=== PATIENT | female | born 1960 | race Caucasian/White ===

== ENCOUNTER → 2017-07-22 12:37 | Outpatient (CLI) | payer OTHER, SELFPAY ==
--- NOTE | 2017-07-22 12:43 | CT_ITS ---
STUDY: CT MAXILLOFACIAL SINUSES REASON FOR EXAM: Female, 56 years old. Chronic sinusitis. RADIATION DOSAGE (If Supplied By Facility): CTDIvol = ( 33.06 ) mGy, DLP = ( 813.19 ) mGycm TECHNIQUE: The patient was scanned in a multi detector CT scanner. High resolution axial imaging was performed without the administration of intravenous contrast material. Sagittal and coronal images were reconstructed. Individualized dose optimization techniques were used for this CT. COMPARISON: None. FINDINGS: FRONTAL SINUSES: Normal aeration, without mucosal inflammatory disease. ETHMOIDAL SINUSES: Minimal areas of mucosal thickening in the posterior ethmoid sinuses, left greater than right. MAXILLARY SINUSES: Moderate mucosal thickening of the left maxillary sinus occurring mostly at the base and in the medial superior sinus with occlusion of the maxillary ostium and infundibulum. Mild to moderate mucosal thickening in the inferior right maxillary sinus and also in the superior sinus with occlusion of the maxillary ostium and infundibulum. 7 mm retention cyst of the posterior medial right maxillary sinus. SPHENOIDAL SINUSES: Mild circumferential mucosal thickening of the bilateral sphenoid sinuses. Normal bilateral middle turbinates. Somewhat nodular mucosal changes on the posterior portions of the inferior turbinates. 3 mm left nasal septal deviation and a moderate size left-sided septal spur. There is patency of the bilateral nasal airways. The visualized osseous structures are normal. The visualized bilateral orbital contents are normal. CT/Sinus/Facial Bone IMPRESSION: Minimal/mild areas of mucosal thickening in posterior ethmoid sinuses, left greater than right. Mild to moderate areas of mucosal thickening in the bilateral maxillary sinuses. Mucosal thickening near the maxillary ostia with bilateral occlusion of the ostia and infundibula. 7 mm retention cyst of the right maxillary sinus. Mild circumferential mucosal thickening in the bilateral sphenoid sinuses. Somewhat nodular mucosa of the posterior inferior turbinates. 3 mm left nasal septal deviation and a moderate size left-sided septal spur. Electronically Signed: Liliane Noel MD at 22:45 EST , Service support ,
== END ==
PROVIDERS: Visit Provider Otolaryngology
DX: J32.0 Chronic maxillary sinusitis (principal)
CPT/HCPCS: 70486

== ENCOUNTER 2017-08-21 05:58 | Day surgery (SDC) | payer OTHER, SELFPAY ==
--- NOTE | 2017-08-20 | ETH_PTH ---
PATIENT: ELSA LOVETT LOC: [facility] – [place] U#:[id number] AGE/SX: 57/F ROOM: RE08/21/[address]: Dr. Gurmeet De La Rosa MD : 1960 BED: DIS: 08/21/2017 SPEC #: [id number] RECD: 08/21/17 13:40 STATUS: JONATHAN REChelita #: [id number] ASHLEY: 08/20/17 00:[address]: Gurmeet De La Rosa DEPT: SURGICAL PATHOLOGY RECD BY: Neil Osuna ENTERED: 08/21/17 13:41 SP TYPE: ETH TISS OTHR DR: Out of Town Doctor Tissues: A - Ethmoid sinus, NOS B - Ethmoid sinus, NOS Procedures: Decalcification bone/plaque Surgery Specimen Level IV HEADER OPERATION: Endoscopy nasal/sinus with total ethmoidectomy PRE-OP DIAGNOSIS: Chronic maxillary sinusitis; chronic ethmoidal sinusitis; hypertrophy of nasal turbinates TISSUE SUBMITTED: A ? Right sinus contents, B ? Left sinus contents MICROSCOPIC DIAGNOSIS A. Right sinus contents: Fragments of respiratory mucosa with chronic inflammation and bone. B. Left sinus contents: Fragments of respiratory mucosa with chronic inflammation and bone. DAMIEN:[place] 08/26/17 MICROSCOPIC DESCRIPTION Slides are reviewed. GROSS DESCRIPTION A - Received in fixative is one container labeled with the patient's name and designated right sinus contents. The specimen consists of multiple fragments of pink-red hemorrhagic soft tissue mixed with fragments of bone that in aggregate measure 7.5 x 3 x 0.3 cm. The entire specimen is submitted in three cassettes after decalcification. B - Received in fixative is one container labeled with the patient's name and designated left sinus contents. The specimen consists of multiple fragments of pink hemorrhagic soft tissue mixed with fragments of bone that in aggregate measure 5 x 3 x 0.3 cm. The entire specimen is submitted in two cassettes after decalcification. / DAMIEN:[place] 08/21/17 TC:3 CPT: 17796 x2, 79717 x2
--- NOTE | 2017-08-21 06:07 | EKG12_ITS ---
Test Reason : PRE OP Blood Pressure : / mmHG Vent. Rate : 081 BPM Atrial Rate : 081 BPM P-R Int : 150 ms QRS Dur : 088 ms QT Int : 388 ms P-R-T Axes : 059 011 051 degrees QTc Int : 450 ms Normal sinus rhythm Normal ECG No previous ECGs available Confirmed by AMANDA NIETO, SARA ([id number]), department editor CAYLA CALDWELL ([id number] on 08/25/2017 9:43:10 AM Referred By: Gurmeet De La Rosa Confirmed By:SARA PATEL MD
[2017-08-21 06:31] VITALS: BP 127/79; PULSE 85; RESP 16; TEMP 37; O2SAT 95; BMI 42.7
[2017-08-21 06:41] LABS: Anion Gap 10 (5-15); BUN 14 mg/dL (7-18); BUN/Creat Ratio 17.8 RATIO (10-20); Calcium,Total 8.7 mg/dL (8.5-10.1); Chloride 106 mmol/L (98-107); Creatinine, Serum 0.79 mg/dL (0.55-1.02); EST Glomerular Filtration Rate 80 mL/min (>60); Est Glom Filt Rate - Afr Amer 96 mL/min (>60); Estimated Creatinine Clearance 57.86 ml/min; Glucose 101 mg/dL (74-106); Potassium 3.8 mmol/L (3.5-5.1); Sodium Level 141 mmol/L (136-145)
[2017-08-21] MEDS: Oxymetazoline 0.05% 1 SPRAY SPRAY.BTL 15 SPRAY (07:46)
[2017-08-21] MEDS: Lidocaine 4% 50 ML Bottle (07:46)
[2017-08-21] MEDS: Bacitracin 500 UNITS/GM PACKET (09:05)
--- NOTE | 2017-08-21 09:20 | DCINST_ITS ---
You will use the following diet at home:: No restrictions Discharge Activity: Return to Normal Activity, May not drive while taking narcotic pain medications. Call your doctor if your incision/area has: Sudden Increased Bleeding, Foul Smelling Discharge Call your doctor if you observe: Fever of 101 or Higher, Uncontrolled pain Allergies/Adverse Reactions: Allergies No Known Allergies Allergy (Verified 08/14/17 09:05) Medications to take at Discharge Pramipexole Di-HCl [Mirapex] 1 mg PO DAILY 08/14/17 Primary Care Physician: [facility] ,Out of [Primary Care Provider] - Please Follow Up With: Gurmeet De La Rosa MD When: 5 days
--- NOTE | 2017-08-21 09:25 | PCM.OPRPT ---
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 She had failed appropriate courses of antibiotic and medical therapy and CT scan showed ongoing chronic changes of the maxillary and ethmoid sinuses consistent with chronic disease as well as clinical presentation is significant hypertrophy of the inferior turbinates which are felt to be contributing to these complaints. The above procedure was offered and the patient was eager to proceed. The risks, alternatives, potential benefits, and complications were discussed at length and any questions answered to the patient and/or caregiver's satisfaction. Witnessed informed consent was obtained in the office, and the patient and/or caregiver was agreeable to proceed. The patient was identified in the preoperative holding and brought to the operating room, was placed under general anesthesia and intubated. When appropriate anesthesia was obtained, the navigational head gear was placed and confirmed to be operational in accordance with the washing and screening plant supervisor's directions. Pledgets soaked in a 50-50 mixture of oxymetazoline and 4% topical lidocaine were placed to decongest the nasal mucosa. These were then removed and beginning on the left side using a 0? endoscope the nasal cavity examined. The insertion of the middle turbinate and uncinate process was then injected with 1% lidocaine with 100,000 epinephrine for a 2 cc total, and a similar injection was then carried on the contralateral side. Upon returning to the left side the middle turbinate was medialized with a [place] elevator. A very high and obstructed osteomeatal complex was noted. This allowed examination of the maxillary sinus ostia which is then probed with a double ball seeker. The uncinate process process was then outfractured with a J curette and transected with a backbiting forceps. This was then removed with the microdebrider creating a wide maxillary antrostomy. The ethmoid bulla was then entered and total ethmoidectomy was then carried out working posteriorly to anterior. Any polyps, scar, and mucous secretions were removed. Pledgets soaked in oxymetazoline were then placed for hemostasis and attention turned to the contralateral side. Similar procedure and findings were then carried out. Floseal hemostatic agent was then applied. Attention was then turned to the inferior nasal turbinates. Anterior aspect of the inferior turbinate was then injected with 1% lidocaine with 100,000 epinephrine for a total of 1 cc bilaterally and then beginning on the left side a 15 blade scalpel used to create a stab incision in the anterior aspect of the turbinate. A caudal elevator was then used to elevate a submucosal plane. Using the microdebrider the anterior bony intervening submucosal was then removed resulting in excellent reduction of the inferior turbinate. Similar procedure was then completed on the contralateral side. Haywood splints were then applied after cutting with bacitracin ointment and secured to the columella with a single 3-0 Prolene suture. An NG tube was then placed to decompress the stomach and the patient returned to anesthesia, revived and extubated having tolerated the procedure well. Type of Anesthesia:: General Anesthesiologist: Gurmeet Pat Specimen's removed: sinus contents Drains: none Estimated Blood Loss (mL): 200 mL Fluids Replaced: 1600 mL Grafts/Implants Used: Haywood splints - Complications none - Admit VTE Documentation VTE Present on Admission: No VTE Mechan Device Prophylaxis: SCD's VTE Pharm Prophylaxis ordered?: No
[2017-08-21 09:31] VITALS: BP 125/78; BP 127/79; PULSE 91; RESP 18; TEMP 36.4; O2SAT 97
[2017-08-21 09:45] VITALS: BP 127/79; BP 128/76; PULSE 94; RESP 18; O2SAT 99
[2017-08-21 10:00] VITALS: BP 127/79; BP 132/77; PULSE 88; RESP 18; O2SAT 100
[2017-08-21 10:13] VITALS: BP 127/79; BP 129/70; PULSE 89; RESP 18; TEMP 36.3; O2SAT 100
[2017-08-21] MEDS: Ondansetron 4 MG/2 ML Vial IV (10:43)
[2017-08-21] MEDS: HYDROcodone Bitartrate/Apap 5/325 Tablet PO (10:45)
[2017-08-21 11:25] VITALS: BP 127/79
== END 2017-08-21 11:45 | disposition home or self-care (01) ==
LOC: SDC 05:59 → AC 06:00
PROVIDERS: Visit Provider Otolaryngology
PROC: (CPT 30140; principal; 2017-08-21 07:00)
DX: J32.2 Chronic ethmoidal sinusitis (principal); J34.3 Hypertrophy of nasal turbinates; J32.0 Chronic maxillary sinusitis; Z85.528 Personal history of other malignant neoplasm of kidney
CPT/HCPCS: 30140; 31256; 36415; 80048; 88305; 88311; 93005; J7120; J2405